=== PATIENT | female | born 1940 | race Caucasian/White ===

== ENCOUNTER 2020-05-11 12:26 | Emergency (ER) | payer MEDICARE, SELFPAY ==
[2020-05-11 12:35] VITALS: BP 110/66; PULSE 110; RESP 16; TEMP 36.9; O2SAT 96
--- NOTE | 2020-05-11 13:13 | ED.GENADULT ---
HPI - General Adult General Chief complaint: Extremity Problem,Nontraumatic Stated complaint: left big toe red/swollen Time Seen by Provider: 05/11/20 13:10 Source: patient Mode of arrival: ambulatory Limitations: no limitations History of Present Illness HPI narrative: Nancy Landry is a 79 yo female with HTN who comes to the [facility] with pain in her right great toe x3 days. Related Data Home Medications Medication Instructions Recorded Confirmed albuterol sulfate 2 inh INHALATION DIRECTED 05/11/20 05/11/20 amlodipine 5 mg PO DAILY 05/11/20 05/11/20 ergocalciferol (vitamin D2) 1,250 mcg PO DAILY 05/11/20 05/11/20 lisinopril 10 mg PO DAILY 05/11/20 05/11/20 triamterene-hydrochlorothiazid 1 tablet PO DAILY 05/11/20 05/11/20 umeclidinium-vilanterol [Anoro 1 inh INHALATION DAILY 05/11/20 05/11/20 Ellipta] Allergies Allergy/AdvReac Type Severity Reaction Status Date / Time No Known Allergies Allergy Unverified 05/11/20 13:16 Review of Systems Review of Systems: Narrative: CONSTITUTIONAL: Denies fever, chills, sweats. EYES: Denies visual changes, redness, discharge. ENT: Denies rhinorrhea, congestion, sore throat, otalgia. CARDIOVASCULAR: Denies chest pain, palpitations, edema. RESPIRATORY: Denies dyspnea, wheezing, cough GASTROINTESTINAL: Denies abdominal pain, nausea, vomiting, diarrhea. GENITOURINARY: Denies dysuria, hematuria, abnormal discharge SKIN: Denies rash or itching. NEUROLOGIC: Denies numbness, or focal weakness. PSYCHIATRIC: Denies anxiety or depression. Great right toe pain PMFSH Family History Family History Other Diabetes mellitus Social History Social History Smoking packs per day: 0.5 Smoking cigarettes per day: 10.0 Smoking status: Current every day smoker Alcohol intake: current Comments At time of signature, I agree with nursing past medical, surgical, social and family history. There is no relevant family history pertinent to the presenting complaint. Exam Narrative: Exam Narrative: GENERAL: This is a well-nourished, well-developed patient, in no apparent distress. HEAD: normocephalic, atraumatic. EYES:Sclera clear/white. Vision is grossly intact. EARS: External ears normal. Hearing grossly intact. NOSE: External nose normal with no obvious nasal discharge, nares without redness, no rhinorrhea. THROAT: Mucous membranes moist, NECK: Neck supple, CARDIOVASCULAR: Regular rate and rhythm without murmurs, gallops, or rubs. RESPIRATORY: Clear to auscultation. Breath sounds equal bilaterally. No wheezes, rales, or rhonchi. GASTROINTESTINAL: Abdomen soft, non-tender, nondistended. Bowel sounds are active.. SKIN: warm, good texture and turgor. Right great toe swelling and pain, pain on walking NEURO: awake, alert, and oriented to person, place and time. There were no obvious focal neurologic abnormalities. EXTREMITIES: Normal range of motion. No edema Course Course Emergency Course: Started on colchicine and [place] for pain Follow-up with primary care physician Vital Signs Vital signs: Vital Signs Temperature 98.5 F 05/11/20 12:35 Pulse Rate 110 H 05/11/20 12:35 Respiratory Rate 16 05/11/20 12:35 Blood Pressure 110/66 05/11/20 12:35 Pulse Oximetry 96 05/11/20 12:35 Temperature 98.5 F 05/11/20 12:35 Pulse Rate 110 H 05/11/20 12:35 Respiratory Rate 16 05/11/20 12:35 Blood Pressure 110/66 05/11/20 12:35 Pulse Oximetry 96 05/11/20 12:35 Medical Decision Making Differential Diagnosis Differential Diagnosis: Gout versus toe trauma versus cellulitis Vital Signs Vital Signs: Vital Signs Temperature 98.5 F 05/11/20 12:35 Pulse Rate 110 H 05/11/20 12:35 Respiratory Rate 16 05/11/20 12:35 Blood Pressure 110/66 05/11/20 12:35 Pulse Oximetry 96 05/11/20 12:35 Temperature 98.5 F 05/11/20 12:
== END 2020-05-11 13:33 | disposition home or self-care (01) ==
PROVIDERS: Emergency Provider Nurse Practitioner; PCP Internal Medicine
DX: M10.9 Gout, unspecified (principal); I10 Essential (primary) hypertension; F17.210 Nicotine dependence, cigarettes, uncomplicated
CPT/HCPCS: 99203; G0463

== ENCOUNTER 2024-10-26 17:16 | Emergency (ER) | payer MEDICARE, SELFPAY ==
[2024-10-26] VITALS (10 sets, daily range): BP systolic 124–134; BP diastolic 64–87; PULSE 92–108; RESP 18–27; TEMP 36.4–36.8; O2SAT 93–98
--- NOTE | ~2024-10-26 | CT_ITS ---
EXAMINATION: CT cervical spine wo con DATE: 10/26/2024 17:58 INDICATION: Neck injury. Fall. TECHNIQUE: Computed tomography (CT) of the cervical spine was performed without intravenous contrast. Automated exposure control and iterative reconstruction technique were employed. The dose-length pro duct was 258.85 mGy-cm. COMPARISON: None FINDINGS: There is 7 degrees levocurvature of cervical spine. There is 2 mm anterolisthesis of C7 on T1. Vertebral body heights are normal. There is mildly decreased disc height at C2-C3, moderately dec reased disc height at C3-C4, severely decreased disc height at C4-C5 and C5-C6, moderately decreased disc height at C6-C7, and mildly decreased disc height at C7-T1. C1 ring is ununited posteriorly, whi ch is a normal variant. The following disc levels are specifically discussed: C2-C3: There is moderate right and severe left uncovertebral joint osteoarthritis. There is severe bi lateral facet joint osteoarthritis. There is mild bilateral neural foraminal stenosis. There is mild central canal stenosis. C3-C4: There is severe bilateral uncovertebral joint osteoarthritis. There is severe bilateral facet joint osteoarthritis. There is mild bilateral neural foraminal stenosis. There is mild central canal stenosis. C4-C5: There is severe bilateral uncovertebral joint osteoarthritis. There is severe bilateral facet joint osteoarthritis. There is mild bilateral neural foraminal stenosis. There is mild central canal stenosis. C5-C6: There is severe bilateral uncovertebral joint osteoarthritis. There is moderate right and chong re left facet joint osteoarthritis. There is mild right and moderate left neural foraminal stenosis. There is moderate central canal stenosis. C6-C7: There is moderate bilateral uncovertebral joint osteoarthritis. There is mild bilateral facet joint osteoarthritis. There is mild bilateral neural foraminal stenosis. There is mild central canal stenosis. C7-T1: There is no uncovertebral joint osteoarthritis. There is severe bilateral facet joint osteoart hritis. There is mild bilateral neural foraminal stenosis. There is no central canal stenosis. IMPRESSION: 1. No fracture. 2. Severe cervical spondylosis. Reviewed, dictated and finalized at location A. GRADER
--- NOTE | ~2024-10-26 | XR_ITS ---
EXAMINATION: XR hip BI 2V w AP pelvis DATE: 10/26/2024 18:51 INDICATION: Fall. TECHNIQUE: An anteroposterior view of the pelvis and 2 views of each hip were obtained. COMPARISON: None. FINDINGS: Alignment is normal. No fracture. There is mild osteoarthritis of the hips. There is severe lumbar spondylosis. IMPRESSION: 1. Mild osteoarthritis of the hips. Reviewed, dictated and finalized at location A. FINISHER
--- NOTE | ~2024-10-26 | CT_ITS ---
EXAMINATION: CT brain wo con DATE: 10/26/2024 17:58 INDICATION: Fall. TECHNIQUE: Computed tomography (CT) of the head was performed without intravenous contrast. The mA wa s adjusted according to patient size. Iterative reconstruction technique was employed. The dose-lengt h product was 605.33 mGy-cm. COMPARISON: None FINDINGS: There are scattered areas of low attenuation in the cerebral white matter. There is no intr acranial hemorrhage, acute infarction, or abnormal intracranial mass lesion. The ventricles are ti l in size. The paranasal sinuses are clear. There are likely changes of ocular lens replacement surge susi. The mastoid air cells are normal. IMPRESSION: 1. Moderate nonspecific cerebral white matter disease, which likely represents chronic small vessel i schemic disease. Reviewed, dictated and finalized at location A. GER STYLIST IMPRESSION: 1. Moderate nonspecific cerebral white matter disease, which likely represents chronic small vessel ischemic disease.
--- NOTE | 2024-10-26 17:48 | ECG_ITS ---
Test Date: 2024-10-26 20:13:27 Measurements Intervals [place] Rate: 92 P: 44 [place]: 164 QRS: -40 QRSD: 97 T: 69 QT: 343 QTc: 425 Interpretive Statements SINUS RHYTHM WITH OCCASIONAL SUPRAVENTRICULAR PREMATURE COMPLEXES LEFT AXIS DEVIATION [QRS AXIS < -30] PATTERN CONSISTENT WITH PULMONARY DISEASE MINIMAL VOLTAGE CRITERIA FOR LVH, CONSIDER NORMAL VARIANT [MEETS CRITERIA IN ONE OF: R(aVL), S(V1), R(V5), R(V5/V6)+S(V1)] NONSPECIFIC T-WAVE ABNORMALITY No previous ECG available for comparison Electronically Signed On 10-27-2024 18:33:47 DIRECTOR EQUIPMENT by Aiden Suarez M.D.
[2024-10-26 18:20] LABS: Basophils Absolute Auto 0.1 K/mm3 (0.0-0.1); Basophils Percent Auto 0.8 % (0.2-1.2); Eosinophils Absolute Auto 0.4 K/mm3 (0-0.3); Eosinophils Percent Auto 2.8 % (0-4.4); Hematocrit 38.9 % (37.0-47.0); Hemoglobin 12.7 g/dL (12.0-15.0); Immature Granulocyte Percent A 0.7 % (0-0.5); Lymphocytes Absolute Auto 1.88 K/mm3 (0.9-3.2); Lymphocytes Percent Auto 13.8 % (18.3-44.2); Mean Corpuscular HGB Conc 32.6 g/dl (32-36); Mean Corpuscular Hemoglobin 29.5 pg (26-34); Mean Corpuscular Volume 90.5 fl (80-100); Mean Platelet Volume 9.9 fl (7.4-10.4); Monocytes Percent Auto 7.6 % (2.6-8.5); Neutrophils Absolute Auto 10.2 K/mm3 (1.3-6.7); Neutrophils Percent Auto 74.3 % (45.5-73.1); Platelet Count Result 369 k/mm3 (150-375); Red Cell Distribution Width 16.4 % (11.5-14.5); White Blood Count 13.7 K/mm3 (4.5-10.0)
--- NOTE | 2024-10-26 18:22 | ED.FALL ---
HPI - Fall General Chief Complaint: Fall Stated Complaint: glf, head injury Time Seen by Provider: 10/26/24 17:20 History of Present Illness HPI Narrative: Patient is an 84-year-old female who presents to the ER after sustaining a fall at her care home. Upon examination patient denies any pain. Her daughter reports she has severe dementia and staff reports patient hit her head when she fell. Patient denies loss consciousness and her daughter is in agreement. She also denies being on blood thinners. Patient reports when she fell she landed on her bottom. Her daughter reports patient is a heavy smoker and has a history of COPD. Related Data Home Medications ?Medication ?Instructions ?Recorded ?Confirmed ?Last Taken ?Type amlodipine 5 mg tablet 5 mg PO DAILY 05/11/20 08/16/23 Unknown History ergocalciferol (vitamin D2) 1,250 1,250 mcg PO DAILY 05/11/20 08/16/23 Unknown History mcg (50,000 unit) capsule lisinopril 10 mg tablet 10 mg PO DAILY 05/11/20 08/16/23 Unknown History triamterene 75 1 tablet PO DAILY 05/11/20 08/16/23 Unknown History mg-hydrochlorothiazide 50 mg tablet umeclidinium 62.5 mcg-vilanterol 1 inh inhalation DAILY 05/11/20 08/16/23 Unknown History 25 mcg/actuation powdr for inhalation (Anoro Ellipta) budesonide 0.25 mg/2 mL suspension 0.25 mg inhalation BID 08/11/23 08/16/23 Unknown History for nebulization (Pulmicort) Allergies Allergy/AdvReac Type Severity Reaction Status Date / Time No Known Allergies Allergy Unverified 05/11/20 13:16 Review of Systems Review of Systems: All systems reviewed & are unremarkable except as noted in HPI and below PMFSH Family History Family History Other Diabetes mellitus Social History Social History Smoking packs per day: 0.5 Smoking cigarettes per day: 10.0 Smoking status: Current every day smoker Alcohol intake: current Exam Narrative: GENERAL: Well appearing, well-nourished, non-toxic, in no acute distress. HEAD: Normocephalic, atraumatic. NECK: Supple. No adenopathy, no masses. RESPIRATORY: Airway patent, respirations nonlabored. Clear to auscultation bilaterally, no rales, rhonchi, wheezing. CARDIOVASCULAR: Tachycardia regular rhythm without murmurs, rubs, or gallops. Peripheral pulses 2+ and equal bilaterally. ABDOMINAL: Soft, nontender, nondistended, no hepatosplenomegaly. Normoactive BS. MUSCULOSKELETAL: Moves all extremities. Strength/ROM intact without gross deformities. No pain with palpation to spine. SKIN: Warm, dry, normal color. No rashes. NEURO: A&O X3. Speech clear. Cranial nerves II-XII grossly intact. No ataxic movements. PSYCHIATRIC: Appropriate mood and affect. Normal interaction. Course Vital Signs Vital signs: Vital Signs Temperature 36.8 C 10/26/24 17:30 Pulse Rate 107 H 10/26/24 17:30 Respiratory Rate 20 10/26/24 17:30 Blood Pressure 124/72 10/26/24 17:30 Pulse Oximetry 96 10/26/24 17:30 Oxygen Delivery Room Air 10/26/24 17:30 Temperature 36.4 C 10/26/24 20:18 Pulse Rate 93 10/26/24 21:51 Respiratory Rate 20 10/26/24 17:30 Blood Pressure 124/72 10/26/24 17:30 Pulse Oximetry 95 10/26/24 21:51 Oxygen Delivery Room Air 10/26/24 17:30 MDM - Fall MDM Narrative Medical decision making narrative: Labs Ordered: CBC, CMP, BMP, UA, INR, PTT, COVID/flu/RSV, troponin, magnesium Imaging Ordered: CT cervical spine, CT brain, bilateral hip & pelvis x-ray, chest x-ray Results: Patient's CT cervical spine indicated No fracture. Severe cervical spondylosis. Pt's brain CT scan indicated Moderate nonspecific cerebral white matter disease, which likely represents chronic small vessel ischemic disease. Patient's bilateral hip with pelvis x-ray indicates Mild osteoarthritis of the hips. Patient's hip x-ray was unremarkable no acute findings besides osteoarthritis. Patient's CBC indicated a white blood cell count 13.7. Her CMP indicated a sodium of 136, BUN 35, creat 1.6, GFR 31, glucose 123, calcium 10.4. Although there are no previous blood draws listed in patient's chart her daughter reports she has a history of chronic kidney disease. Patient and her daughter declined IV fluid administration. Diagnosis: urinary tract infection Patient Education/Shared MDM: Patient and her daughter declined a chest x-ray because it will not show anything differently. She has wheezing all the time. SENIOR MARKETING DATA ANALYST explained importance of finding a reason why patient was tachycardic and was feeling weak. Agreement was made that patient's urinalysis be performed to determine whether not she has a UTI. If with this is a source of infection then patient will not a chest x-ray performed, per the request of her daughter and patient. Results shared with patient. Patient will be given her 1st dose of oral antibiotics here in the ER, and she will be given a prescription upon discharge. She will be placed on a prescription for doxycycline as she took Macrobid for a UTI in 2149- Patient and daughter is in agreement with current treatment plan. All questions answered. Vital signs stable at time of discharge. Differential Diagnosis Differential diagnosis: Likely other (urinary tract infection, COVID/influenza/RSV, dehydration) Lab Data Attestation: I reviewed the patient's lab results. 10/26/24 18:04 10/26/24 18:05 Labs: Lab Results 10/26/24 10/26/24 10/26/24 Range/Units 18:04 18:05 20:29 WBC 13.7 H (4.5-10.0) K/mm3 RBC 4.30 (4.2-5.4) M/mm3 Hgb 12.7 (12.0-15.0) g/dL Hct 38.9 (37.0-47.0) % MCV 90.5 (80-100) fl MCH 29.5 (26-34) pg MCHC 32.6 (32-36) g/dl RDW 16.4 H (11.5-14.5) % Plt Count 369 (150-375) k/mm3 MPV 9.9 (7.4-10.4) fl Immature Gran % (Auto) 0.7 H (0-0.5) % Neut % (Auto) 74.3 H (45.5-73.1) % Lymph % (Auto) 13.8 L (18.3-44.2) % [place] % (Auto) 7.6 (2.6-8.5) % Eos % (Auto) 2.8 (0-4.4) % Baso % (Auto) 0.8 (0.2-1.2) % Lymph # (Auto) 1.88 (0.9-3.2) K/mm3 [place] # (Auto) 1.0 H (0.1-0.6) K/mm3 Eos # (Auto) 0.4 H (0-0.3) K/mm3 Baso # (Auto) 0.1 (0.0-0.1) K/mm3 Abs Immat Gran (auto) 0.10 H (0.00-0.031) K/mm3 Absolute Neuts (auto) 10.2 H (1.3-6.7) K/mm3 Absolute Nucleated RBC 0.000 (0.0-0.012) K/mm3 Nucleated RBC % 0.0 (0.0-0.2) % PT 14.0 (11.1-14.7) Seconds INR 1.1 APTT 31.1 (22.3-36.8) Seconds Sodium 136 L (137-145) mmol/L Potassium 4.4 (3.4-5.0) mmol/L Chloride 107 (98-107) mmol/L Carbon Dioxide 23 (22-30) mmol/L Anion Gap 6 (4-12) mmol/L BUN 35 H (7-17) mg/dL Creatinine 1.60 H (0.7-1.0) mg/dL Estim Creat Clear Calc 26 ml/min Estimated GFR 31 L (59 - ) Glucose 123 H (65-110) mg/dL Calcium 10.4 H (8.4-10.2) mg/dL Magnesium 1.9 (1.6-2.3) mg/dL Total Bilirubin 0.3 (0.2-1.3) mg/dL AST 16 (14-36) U/L ALT 12 (6-35) U/L Alkaline Phosphatase 91 (38-126) U/L Troponin I < 0.012 (0.000-0.034) ng/mL NT-Pro-B Natriuret Pep 207 H (19.9-100) pg/mL Total Protein 7.0 (6.3-8.2) g/dL Albumin 3.8 (3.5-5.1) g/dL Urine Color Yellow (Yellow) Urine Appearance Turbid H (Clear) Urine pH 5.0 (5.0-9.0) Ur Specific [place] 1.016 (1.001-1.035) Urine Protein 2+ H (Negative) mg/dL Urine Glucose (UA) Negative (Negative) mg/dL Urine Ketones Negative (Negative) mg/dL Ur Blood (Man) 2+ H (Negative) Urine Nitrate Negative (Negative) Urine Bilirubin Negative (Negative) Urine Urobilinogen 0.2 (<2.0) mg/dL Leukocyte Esterase Rfl 3+ H (Negative) [place]/UL Urine RBC >100 H (0-2) /hpf Urine WBC 51-75 H (0-3) /hpf Urine Mucus Present /lpf Influenza A (RT-PCR) Negative (Negative) Influenza B (RT-PCR) Negative (Negative) RSV (RT-PCR) Negative (Negative) SARS-CoV-2 RNA (RT-PCR) Negative (Negative) Imaging Data Attestation: I personally reviewed and interpreted this imaging study as follows: Radiologist's impression: Impressions Head CT 10/26/24 18:07 IMPRESSION: 1. Moderate nonspecific cerebral white matter disease, which likely represents chronic small vessel ischemic disease. Cervical Spine CT 10/26/24 18:08 IMPRESSION: 1. No fracture. 2. Severe cervical spondylosis. Hip/Pelvis X-Ray 10/26/24 18:54 IMPRESSION: 1. Mild osteoarthritis of the hips. Discharge Plan Discharge Clinical Impression: Urinary tract infection Patient Disposition: Home, Self-Care Condition: Stable Instructions: Antibiotic Form, Urinary Tract Infection in Older Adults (ED) Additional Instructions: Please return to the ER with an worsening symptoms. Follow-up with primary care provider in the next 2-3 days. Take all medications as prescribed. Patient Language: Divehi Prescriptions: New doxycycline monohydrate 100 mg capsule 100 mg PO BID Qty: 14 0RF doxycycline monohydrate 100 mg capsule 100 mg PO BID Qty: 14 0RF No Action amlodipine 5 mg tablet 5 mg PO DAILY lisinopril 10 mg tablet 10 mg PO DAILY triamterene-hydrochlorothiazid 75-50 mg tablet 1 tablet PO DAILY ergocalciferol (vitamin D2) 1,250 mcg (50,000 unit) capsule 1,250 mcg PO DAILY Anoro Ellipta 62.5-25 mcg/actuation blister with device 1 inh INHALATION DAILY colchicine 0.6 mg tablet 0.6 mg PO .every 8 hours Qty: 10 0RF hydrocodone-acetaminophen [[place]] 5-325 mg tablet 1 tablet PO Q8H PRN (Reason: pain) Qty: 14 0RF ipratropium-albuterol 0.5 mg-3 mg(2.5 mg base)/3 mL solution for nebulization 3 ml inhalation QID Qty: 180 0RF budesonide [Pulmicort] 0.25 mg/2 mL suspension for nebulization 0.25 mg inhalation BID Follow-up/Referrals: Jose Luis,Bola Lundy MD [Primary Care Provider] - Time of Disposition: 22:00
[2024-10-26 18:28] LABS: Alanine Aminotransferase 12 U/L (6-35); Albumin Level 3.8 g/dL (3.5-5.1); Alkaline Phosphatase 91 U/L (38-126); Anion Gap 6 mmol/L (4-12); Aspartate Amino Transferase 16 U/L (14-36); Bilirubin,Total 0.3 mg/dL (0.2-1.3); Blood Urea Nitrogen 35 mg/dL (7-17); Calcium 10.4 mg/dL (8.4-10.2); Carbon Dioxide 23 mmol/L (22-30); Chloride 107 mmol/L (98-107); Estimated CRCL calculation 26 ml/min; Estimated Glomerular Filt Rate 31; Glucose 123 mg/dL (65-110); Magnesium 1.9 mg/dL (1.6-2.3); Potassium 4.4 mmol/L (3.4-5.0); Sodium 136 mmol/L (137-145)
[2024-10-26 18:31] LABS: INR 1.1
[2024-10-26 18:32] LABS: Partial Thromboplastin Time 31.1 Seconds (22.3-36.8)
[2024-10-26 18:38] LABS: NT Pro B Type Natriuretic Pept 207 pg/mL (19.9-100); Troponin I < 0.012 ng/mL (0.000-0.034)
[2024-10-26 18:55] LABS: Influenza A QL RT-PCR Negative (Negative); Influenza B QL RT-PCR Negative (Negative); RSV RNA, RT-PCR Negative (Negative); SARS-CoV-2 RNA PCR Negative (Negative)
[2024-10-26] MEDS: IPRATROPIUM 0.5 MG/ALBUTEROL SULFATE 2.5 MG AMPUL.NEB 3 ML INHALATION (19:54)
[2024-10-26 20:57] LABS: Add Urine Microscopic? YES; Appearance Urine Turbid (Clear); Bilirubin Urine Negative (Negative); Blood Urine 2+ (Negative); Color Urine Yellow (Yellow); Glucose Urine UA Negative (Negative); Ketones Urine Negative (Negative); Leukocyte Esterase Ur 3+ LEU/UL (Negative); Nitrate Urine Negative (Negative); Protein Urine 2+ mg/dL (Negative); Specific Grav Ur 1.016 (1.001-1.035); Urobilinogen Urine 0.2 mg/dL (<2.0)
[2024-10-26 20:59] LABS: RBC Urine >100 /hpf (0-2); WBC Urine 51-75 /hpf (0-3)
[2024-10-26 21:00] LABS: Mucus Urine Present /lpf
[2024-10-26] MEDS: DOXYCYCLINE HYCLATE 100 MG TABLET PO (22:30)
== END 2024-10-26 22:56 ==
PROVIDERS: Emergency Provider Registered Nurse; PCP Internal Medicine
DX: N39.0 Urinary tract infection, site not specified (principal); N18.9 Chronic kidney disease, unspecified; J44.9 Chronic obstructive pulmonary disease, unspecified; F03.C0 Unspecified dementia, severe, without behavioral disturbance, psychotic disturbance, mood disturbance, and anxiety; F17.210 Nicotine dependence, cigarettes, uncomplicated; R90.82 White matter disease, unspecified; M47.812 Spondylosis without myelopathy or radiculopathy, cervical region; M16.0 Bilateral primary osteoarthritis of hip; I49.1 Atrial premature depolarization; R94.31 Abnormal electrocardiogram [ECG] [EKG]; W19.XXXA Unspecified fall, initial encounter; Z20.822 Contact with and (suspected) exposure to COVID-19
CPT/HCPCS: 36415; 70450; 72125; 73521; 80053; 81001; 83735; 83880; 84484; 85025; 85610; 85730; 87086; 87637; 93005; 96360; 96361; 99284; A9270